=== PATIENT | female | born 1990 | race Caucasian/White ===

== ENCOUNTER 2019-07-15 15:22 | Emergency (ER) | payer BC ==
[2019-07-15 16:00] VITALS: BP 146/94
--- NOTE | 2019-07-15 16:20 | UC ---
Skin Complaint HPI - HPI Summary HPI Summary: Pt presents with c/o painless "bump" on back of head that she noticed 1 month ago. Pt denies injury, drainage, or tenderness. - History of Current Complaint Chief Complaint: UCHeadache Time Seen by Provider: 07/15/19 16:12 Stated Complaint: BUMP ON HEAD/ NO INJURY Hx Obtained From: Patient Hx Last Menstrual Period: 06/16/19-06/20/19 ?: No Onset/Duration: Sudden Onset, Lasting Weeks, Still Present Skin Exposure Onset/Duration: Weeks Ago - 4 Timing: Constant Onset Severity: Mild Current Severity: Mild Pain Intensity: 1 Location: Discrete - posterior head medial occipital Character: Raised Aggravating Factor(s): Touch Alleviating Factor(s): Unknown Associated Signs & Symptoms: Positive: Negative - Allergy/Home Medications Allergies/Adverse Reactions: Allergies Allergy/AdvReac Type Severity Reaction Status Date / Time amoxicillin Allergy Hives Verified 07/15/19 15:56 metal Allergy See Comment Uncoded 07/15/19 15:56 Home Medications: Home Medications Norethindrone AC-Eth Estradiol [Loestrin 21 1-20 Tablet] 1 tab DAILY 07/15/19 [ History Confirmed 07/15/19] PMH/Surg Hx/FS Hx/Imm Hx Previously Healthy: Yes - Surgical History Surgical History: Yes Surgery Procedure, Year, and Place: appendix. ovarian cysts - Family History Known Family History: Positive: Cardiac Disease - Social History Occupation: Employed Full-time Lives: With Family Alcohol Use: Weekly Substance Use Type: None Smoking Status (MU): Never Smoked Tobacco Have You Smoked in the Last Year: No Review of Systems All Other Systems Reviewed And Are Negative: Yes Constitutional: Positive: Negative Skin: Positive: Other - painless moveable firm lump medial occipital Eyes: Positive: Negative ENT: Positive: Negative Respiratory: Positive: Negative Cardiovascular: Positive: Negative Gastrointestinal: Positive: Negative Genitourinary: Positive: Negative Motor: Positive: Negative Neurovascular: Positive: Negative Musculoskeletal: Positive: Negative Neurological: Positive: Headache Psychological: Positive: Negative Is Patient Immunocompromised?: No Physical Exam Triage Information Reviewed: Yes Appearance: Well-Appearing Vital Signs: Initial Vital Signs Temp 98.8 F 07/15/19 15:57 Pulse 76 07/15/19 15:57 Resp 16 07/15/19 15:57 BP 146/94 07/15/19 15:57 Pulse Ox 98 07/15/19 15:57 Vital Signs Reviewed: Yes Eye Exam: Normal ENT Exam: Normal Dental Exam: Normal Neck exam: Normal Respiratory Exam: Normal Cardiovascular Exam: Normal Musculoskeletal Exam: Normal Neurological Exam: Normal Psychological Exam: Normal Skin Exam: Other - firm moveable lump/mass center of occipital non tender. non erythematous Course/Dx - Course Course Of Treatment: Pt was recommended to f/u with PCP and t o seek care immediately if symptoms worsened. - Differential Diagnoses - Skin Complaint Differential Diagnoses: Abscess, Other - folliculitis - Diagnoses Provider Diagnosis: Scalp cyst Discharge ED - Sign-Out/Discharge Documenting (check all that apply): Patient Departure All imaging exams completed and their final reports reviewed: No Studies - Discharge Plan Condition: Stable Disposition: HOME Patient Education Materials: Cyst (ED) Referrals: [facility] [place] [facility] [Outside] - If Needed No Primary Care Phys,NOPCP [Primary Care Provider] - Additional Instructions: Please follow up with your PCP as needed. If your symptoms worsen please seek care immediately. - Billing Disposition and Condition Condition: STABLE Disposition: Home - Attestation Statements Provider Attestation: I was available for consult. This patient was seen by the NAIN. The patient was not presented to, seen by, or examined by me. -Remi
== END 2019-07-15 16:33 | disposition home or self-care (01) ==
LOC: UCCORT 15:22
DX: L72.8 Other follicular cysts of the skin and subcutaneous tissue (principal); Z88.0 Allergy status to penicillin; Z91.09 Other allergy status, other than to drugs and biological substances
CPT/HCPCS: 99211; G0463